=== PATIENT | female | born 1975 | race Caucasian/White ===

== ENCOUNTER 2024-12-10 10:04 | Emergency (ER) | payer OTHER, SELFPAY ==
[2024-12-10 10:11] VITALS: BP 166/96
--- NOTE | 2024-12-10 11:03 | ED.GENMED ---
History of Present Illness
<Lisa Miller MD, Resident - Last Filed: 12/10/24 15:39>
General
Chief Complaint: Dental Problem
Source: patient
Time Seen by Provider: 12/10/24 10:40
History of Present Illness
History of Present Illness:
49Y female with past medical history of GERD and asthma presents to the ER for left sided tooth pain and swelling. Mid-October, patient went to the dentist for cavity fillings. 4 to 5 weeks later she noticed some sharp tooth pain that came and
went. In the last week, the pain has become constant and excruciating. She went to the dentist Dr. Islas this past and they did a root canal on the left central incisor. The pain has been ongoing since then. On Tuesday she noticed
swelling that got progressively worse. Today the entire left cheek is moderately swollen. She denies any fever or chills. She has been unable to chew on the left side of her cheek. She denies any foul taste, foul breath, purulence or external
erythema noted. She feels like she has sinus pain.
Past History
<Lisa Miller MD, Resident - Last Filed: 12/10/24 15:39>
Past History
ED Past Medical History: Asthma and GERD
ED Past Surgical History: Tonsilectomy and Other (Total abdominal hysterectomy. )
Social History
Tobacco: Smoker (1 PPD since age 13)
Alcohol: Daily (3-6 white claws per day )
Drug: None
Family History
Family History: Other (Father -heart valve vegetations secondary to tooth issues, diabetes,)
Review of Systems
<Lisa Miller MD, Resident - Last Filed: 12/10/24 15:39>
Review of Systems
Allergies reviewed?: Yes
Constitutional: Reports no symptoms
EENT: Reports mouth swelling and other (Tooth pain, left cheek swelling, left jaw pain)
Respiratory: Reports no symptoms
Cardiac: Reports no symptoms
ABD/GI: Reports no symptoms
: Reports no symptoms
Musculoskeletal: Reports no symptoms
Skin: Reports no symptoms
Neurological: Reports no symptoms
Endocrine: Reports no symptoms
Hematologic/Lymphatic: Reports no symptoms
Phy Exam
<Lisa Miller MD, Resident - Last Filed: 12/10/24 15:39>
Physical Exam
Physical Exam:
General: Nontoxic, uncomfortable
Head: Atraumatic, mild to moderate left cheek swelling noted, tenderness with palpation of above left central incisor, induration noted, tenderness with palpation over entirety of left cheek. No significant erythema noted along gums or purulence
noted. No pharyngeal erythema.
Neck: Supple
Cardiac: Regular S1-S2, no murmurs
Respiratory: Inspiratory wheezing
Abdomen: Soft, nontender, nondistended, normal bowel sounds all 4 quadrants
Extremities: No peripheral edema
Neurological: Nonfocal, awake alert and oriented
Psych: Stable
Course
<Lisa Miller MD, Resident - Last Filed: 12/10/24 15:39>
Orders/Labs/Results
Orders:
Orders
12/10/24 11:21
Clindamycin HCl [Cleocin] 300 mg PO NOW STA
12/10/24 11:34
Facial Bones w Contrast CT [CT Facial Bones W/ Iv Contrast] Urgent
Comment:
Reason For Exam: jaw and tooth pain
12/10/24 11:35
Basic Metabolic Panel Urgent
Complete Blood Count/With Diff Urgent
Abnormal Lab Results
12/10/24
11:35
WBC 14.8 H 10^3/uL
(4.8-10.8)
Abs Immat Gran (auto) 0.1 H 10^3/uL
(0-0.05)
Absolute Neuts (auto) 10.7 H 10^3/uL
(1.4-6.5)
Absolute Monos (auto) 1.1 H 10^3/uL
(0.1-0.6)
Lymphocytes % 18.3 L %
(20.5-51.1)
Creatinine 0.5 L mg/dL
(0.6-1.0)
Glucose 113 H mg/dl
(70-99)
Calcium 10.6 H mg/dl
(8.4-10.2)
12/10/24 11:35
12/10/24 11:35
Vital Signs
Initial and Last Documented VS:
Initial Vital Signs
Temp Pulse Resp BP Pulse Ox
98.9 F 69 16 166/96 100
12/10/24 10:11 12/10/24 10:11 12/10/24 10:11 12/10/24 10:11 12/10/24 10:11
Last Documented Vital Signs
Temp Pulse Resp BP Pulse Ox
98.9 F 70 18 148/68 99
12/10/24 10:11 12/10/24 13:57 12/10/24 13:57 12/10/24 13:57 12/10/24 13:57
<Kashif H. Danny, DO - Last Filed: 12/10/24 11:24>
Orders/Labs/Results
Orders:
Orders
12/10/24 11:21
Clindamycin HCl [Cleocin] 300 mg PO NOW STA
12/10/24 11:34
Facial Bones w Contrast CT [CT Facial Bones W/ Iv Contrast] Urgent
Comment:
Reason For Exam: jaw and tooth pain
12/10/24 11:35
Basic Metabolic Panel Urgent
Complete Blood Count/With Diff Urgent
Abnormal Lab Results
12/10/24
11:35
WBC 14.8 H 10^3/uL
(4.8-10.8)
Abs Immat Gran (auto) 0.1 H 10^3/uL
(0-0.05)
Absolute Neuts (auto) 10.7 H 10^3/uL
(1.4-6.5)
Absolute Monos (auto) 1.1 H 10^3/uL
(0.1-0.6)
Lymphocytes % 18.3 L %
(20.5-51.1)
Creatinine 0.5 L mg/dL
(0.6-1.0)
Glucose 113 H mg/dl
(70-99)
Calcium 10.6 H mg/dl
(8.4-10.2)
12/10/24 11:35
12/10/24 11:35
Vital Signs
Initial and Last Documented VS:
Initial Vital Signs
Temp Pulse Resp BP Pulse Ox
98.9 F 69 16 166/96 100
12/10/24 10:11 12/10/24 10:11 12/10/24 10:11 12/10/24 10:11 12/10/24 10:11
Last Documented Vital Signs
Temp Pulse Resp BP Pulse Ox
98.9 F 70 18 148/68 99
12/10/24 10:11 12/10/24 13:57 12/10/24 13:57 12/10/24 13:57 12/10/24 13:57
<Lisa Miller MD, Resident - Last Filed: 12/10/24 15:39>
MDM/Problems Addressed
Differential Diagnosis Includes:
Abscess, infection, osteomyelitis, parotitis, parotid gland tumor, salivary gland stone
MDM/Problems Addressed:
CT of the facial bones to evaluate for abscess. Start clindamycin. Elevated WBC 14.[address] of the facial structures reveals findings suggestive of cellulitis of the soft tissue of the left cheek and adjacent to the left mandible. No CT evidence for focal abscess. Vitals otherwise stable. Okay to discharge patient on clindamycin with
recommendations of follow-up with dentist. Recommended tell dentist or come back to the ED if she develops a fever or chills.
Chronic conditions affecting care: Other (tobacco abuse )
<Lisa Miller MD, Resident - Last Filed: 12/10/24 15:39>
*Pulse Oximetry
SaO2: 100
Oxygen Mode of Delivery: Room air
Patient hypoxic: no
*Critical Care Note
Total Time (30-74mins, 75-104mins- exclusive of procedures): Not Applicable
ED Attending Note
<Lisa Miller MD, Resident - Last Filed: 12/10/24 15:39>
-
Portions of this chart may have been created with voice recognition software.� Occasional wrong word or��sound alike� substitutions may have occurred due to the inherent limitations of voice recognition software.
<Kashif Delgado, - Last Filed: 12/10/24 11:24>
ED Attending Note
Patient seen and examined by attending physician: Yes
I performed a history and physical exam of patient and discussed management with resident, I reviewed resident's note and agree with documented findings and plan of care.: Yes
ED Attending Note:
I agree with Lisa's note:
Pt with pain, swelling left face which radiates up. Pt concerned it is related to a sinus infection. Pt had root canal of left frontal incisor a few days.
+ swelling noted anterior upper maxillary region with fullness and tenderness to palpation
suspect upper/anterior dental abscess. Confirm with imaging. Start clinda. F/U with dentist
Discharge Plan
Departure
Patient Disposition: Home (Routine Discharge)
Date of Disposition: 12/10/24
Time of Disposition: 13:34
Patient with high blood pressure during this ER visit?: Yes
Discharge Problem:
Cellulitis
Instructions: Tooth Abscess (DC), Dental Pain (DC)
Prescriptions:
New
clindamycin HCl [Cleocin HCl] 150 mg capsule
150 mg PO TID 10 Days Qty: 30 0RF
Referrals:
Lupe Vaz DO [Family Provider, [facility]]
Activity Restrictions/Additional Instructions:
Please take clindamycin 150mg three times a day and follow up with your dentist. Please call your dentist or come back to the ER if you develop fevers or chills.
Interventions
Interventions:
*Risk Screen - Suicide Last Done: 12/10/24 10:11
*Neglect/Abuse Screening Last Done: 12/10/24 10:11
*Nursing Disposition Last Done: 12/10/24 13:57
Discharge Date and Time
Discharge Date/Time: 12/10/24 13:59
Print Language: POLISH
[2024-12-10] MEDS: CLEOCIN 300 MG PO (11:42)
[2024-12-10 11:54] LABS: Hematocrit 40.1 % (37.0-47.0); Hemoglobin 13.4 g/dL (12.0-16.0); Mean Corp Hgb Conc. 33.4 g/dL (33.0-37.0); Mean Corpuscular Volume 89.1 fL (81.0-99.0); Nucleated Red Blood Cells % 0 %; Platelet Count 341 10^3/uL (130-400); Red Cell Dist. Width 13.3 % (11.5-14.5)
[2024-12-10 12:46] LABS: Blood Urea Nitrogen 11 mg/dl (7-17); Calcium 10.6 mg/dl (8.4-10.2); Carbon Dioxide 23 mmol/L (22-30); Chloride 106 mmol/L (98-107); Glucose 113 mg/dl (70-99); Potassium 4.5 mmol/L (3.5-5.1); Sodium 136 mmol/L (135-145); eGFR > 60.00
[2024-12-10 13:57] VITALS: BP 148/68
== END 2024-12-10 13:59 | disposition home or self-care (01) ==
LOC: EMR 10:04
PROVIDERS: EMERGENCY PHYSICIAN Emergency Medicine; FAMILY PHYSICIAN Family Medicine
DX: L03.90 Cellulitis, unspecified (principal); K08.89 Other specified disorders of teeth and supporting structures; K21.9 Gastro-esophageal reflux disease without esophagitis; J45.909 Unspecified asthma, uncomplicated; F17.210 Nicotine dependence, cigarettes, uncomplicated
CPT/HCPCS: 99284; 70487; 80048; 85025; Q9967